=== PATIENT | female | born 1975 | race Caucasian/White ===

== ENCOUNTER 2017-10-24 07:23 | Emergency (ER) | payer BC ==
[2017-10-24] MEDS ORDERED: NS 0.9% 1000 ML* 1,000 ML IV ONE (07:43)
[2017-10-24] MEDS ORDERED: Aspirin Low Dose CHEW TAB* 81 MG PO ONE (07:45)
[2017-10-24 08:15] LABS: Hematocrit 43 % (35-47); Mean Corpuscular HGB Conc 33 g/dl (31-36); Mean Corpuscular Hemoglobin 27 pg (27-31); Mean Corpuscular Volume 83 fL (80-97); Mean Platelet Volume 8 um3 (7.4-10.4); Red Blood Count 5.18 10^6/ul (4.0-5.4); Red Cell Distribution Width 15 % (10.5-15); White Blood Count 10.4 10^3/ul (3.5-10.8)
[2017-10-24 08:25] LABS: ALT 12 U/L (7-52); AST 11 U/L (13-39); Albumin 4.2 g/dL (3.2-5.2); Alkaline Phosphatase 63 U/L (34-104); Anion Gap 5 mmol/L (2-11); BUN/Creatinine Ratio 24.4 (8-20); Blood Urea Nitrogen 20 mg/dL (6-24); CO2 Carbon Dioxide 25 mmol/L (22-32); Calcium 9.6 mg/dL (8.6-10.3); Chloride 107 mmol/L (101-111); Creatine Kinase 61 U/L (10-223); EGFR African American 97.9 (>60); EGFR Non-African American 76.1 (>60); Globulin 3.2 g/dL (2-4); Glucose 95 mg/dL (70-100); Magnesium 1.9 mg/dL (1.9-2.7); Potassium 3.9 mmol/L (3.5-5.0); Sodium 137 mmol/L (133-145); Total Protein 7.4 g/dL (6.4-8.9)
[2017-10-24 08:35] LABS: T4 7.69 mcg/mL (6.09-12.23)
[2017-10-24 08:38] LABS: TSH (Thyroid Stimulating Horm) 1.59 mcIU/mL (0.34-5.60)
--- NOTE | 2017-10-24 08:41 | RAD ---
HISTORY: Chest pain COMPARISONS: October 19, 2011 VIEWS: 1: frontal portable view of the chest at 8:20 AM FINDINGS: LINES AND TUBES: None. CARDIOMEDIASTINAL SILHOUETTE: The cardiomediastinal silhouette is normal for portable technique. PLEURA: The costophrenic angles are sharp. No pleural abnormalities are noted. LUNG PARENCHYMA: The lungs are clear. ABDOMEN: The upper abdomen is clear. There is no subphrenic gas. BONES AND SOFT TISSUES: No bone or soft tissue abnormalities are noted. IMPRESSION: NO ACTIVE CARDIOPULMONARY DISEASE.
[2017-10-24 12:36] LABS: Urine Bacteria Absent (Absent); Urine Bilirubin Negative (Negative); Urine Glucose Negative (Negative); Urine Nitrite Negative (Negative)
[2017-10-24 13:45] VITALS: BP 157/87
--- NOTE | 2017-10-26 04:12 | ED ---
Thalia Bliss Gabriel, scribed for Leslie Kwong MD on 10/24/17 at 0746 . HPI Chest Pain - HPI Summary HPI Summary: This patient is a 42 year old F presenting to [facility] accompanied by her with a chief complaint of CP since 0610 this morning that has resolved after a few hours. While it was present she rated the pain as 6/10, located on the left side under her breast and radiating into her left arm and armpit. She reports that the arm pain is still present. Patient reports PACHECO. Patient denies SOB. Pt states that she took Tylenol on the onset of the pain. She is currently menstruating with a . She has a family history of MIs at an early age in her aunt, but no history of PE. - History of Current Complaint Chief Complaint: EDChestPainROMI Time Seen by Provider: 10/24/17 07:43 Hx Obtained From: Patient Onset/Duration: Started Hours Ago - at 0610, Atraumatic, Still Present Time of Onset: 06:10 Timing: Constant Initial Severity: Mild Current Severity: Mild Pain Intensity: 3 Pain Scale Used: 0-10 Numeric Chest Pain Location: Left Lateral Chest Pain Radiates: Yes Chest Pain Radiates To:: Arm - left Character: Sharp/Stabbing Aggravating Factor(s): Nothing Alleviating Factor(s): Spontaneous Resolution Associated Signs and Symptoms: Positive: Negative - SOB, Headaches, Other: - left arm pain - Allergy/Home Medications Allergies/Adverse Reactions: Allergies Allergy/AdvReac Type Severity Reaction Status Date / Time Latex Allergy Hives Verified 10/24/17 07:31 BOUNCE FABRIC SOFTNER Allergy Rash Uncoded 07/15/15 07:37 CAMOMILE Allergy Hives Uncoded 07/15/15 07:37 Home Medications: Home Medications Ferrous Gluconate TAB* [Fergon TAB*] 325 mg PO DAILY 10/24/17 [History Confirmed 10/24/17] Multivitamins/Minerals TAB* [Theragran/minerals TAB*] 1 tab PO DAILY 10/24/17 [ History Confirmed 10/24/17] PMH/Surg Hx/FS Hx/Imm Hx Previously Healthy: No Endocrine/Hematology History: Reports: Hx Anemia - IRON DEFICIENT Cardiovascular History: Denies: Hx Deep Vein Thrombosis, Hx Embolism Musculoskeletal History: Reports: Hx Tendonitis Sensory History: Reports: Hx Contacts or Glasses - GLASSES Denies: Hx Hearing Aid Opthamlomology History: Reports: Hx Contacts or Glasses - GLASSES - Cancer History Hx Chemotherapy: No Hx Radiation Therapy: No - Surgical History Surgery Procedure, Year, and Place: CSECTION. TUBAL [facility] 2002. [place] in left leg Hx Anesthesia Reactions: No Infectious Disease History: No Infectious Disease History: Denies: Traveled Outside the [place] in Last 30 Days - Family History Known Family History: Positive: Cardiac Disease Negative: Blood Disorder - PE's negative - Social History Alcohol Use: None Substance Use Type: Reports: None Smoking Status (MU): Never Smoked Tobacco Review of Systems Constitutional: Negative Positive: Chest Pain Negative: Shortness Of Breath Gastrointestinal: Negative Positive: Other - pain into left arm and armpit Positive: Headache Psychological: Normal All Other Systems Reviewed And Are Negative: Yes Physical Exam - Summary Physical Exam Summary: Appearance: Well-appearing, mild pain distress, Well-nourished Skin: Warm, color reflects adequate perfusion Head: Normal Head/Face appearance Eyes: Conjunctiva clear, EOMI ENT: Normal appearance Neck: Supple, no JVD, no adenopathy Respiratory: Lungs clear, Normal breath sounds, no respiratory distress, chest nontender on palp Cardio: RRR, No murmur, pulses normal, brisk capillary refill Abdomen: soft, nontender Musculoskeletal: Strength Intact/ ROM intact, no calf tenderness or swelling Neuro: Alert, muscle tone normal,facial symmetry, speech normal, sensory/motor intact Triage Information Reviewed: Yes Vital Signs On Initial Exam: Initial Vitals Temp Pulse Resp BP Pulse Ox 99.0 F 89 16 161/96 98 10/24/17 07:31 10/24/17 07:31 10/24/17 07:31 10/24/17 07:31 10/24/17 07:31 Vital Signs Reviewed: Yes Diagnostics - Vital Signs Vital Signs Temp Pulse Resp BP Pulse Ox 10/24/17 07:31 99.0 F 89 16 161/96 98 - Laboratory Lab Results: Lab Results 10/24/17 10/24/17 10/24/17 Range/Units 07:56 07:56 07:56 WBC 10.4 (3.5-10.8) 10^3/ul RBC 5.18 (4.0-5.4) 10^6/ul Hgb 14.0 (12.0-16.0) g/dl Hct 43 (35-47) % MCV 83 (80-97) fL MCH 27 (27-31) pg MCHC 33 (31-36) g/dl RDW 15 (10.5-15) % Plt Count 368 (150-450) 10^3/ul MPV 8 (7.4-10.4) um3 Neut % (Auto) 65.0 (38-83) % Lymph % (Auto) 25.4 (25-47) % [place] % (Auto) 7.1 (1-9) % Eos % (Auto) 1.7 (0-6) % Baso % (Auto) 0.8 (0-2) % Absolute Neuts (auto) 6.7 (1.5-7.7) 10^3/ul Absolute Lymphs (auto) 2.6 (1.0-4.8) 10^3/ul Absolute Monos (auto) 0.7 (0-0.8) 10^3/ul Absolute Eos (auto) 0.2 (0-0.6) 10^3/ul Absolute Basos (auto) 0.1 (0-0.2) 10^3/ul Absolute Nucleated RBC 0 10^3/ul Nucleated RBC % 0 INR (Anticoag Therapy) (0.77-1.02) D-Dimer, Quantitative (Less Than 230) ng/mL Sodium 137 (133-145) mmol/L Potassium 3.9 (3.5-5.0) mmol/L Chloride 107 (101-111) mmol/L Carbon Dioxide 25 (22-32) mmol/L Anion Gap 5 (2-11) mmol/L BUN 20 (6-24) mg/dL Creatinine 0.82 (0.51-0.95) mg/dL Est GFR ( Amer) 97.9 (>60) Est GFR (Non-Af Amer) 76.1 (>60) BUN/Creatinine Ratio 24.4 H (8-20) Glucose 95 (70-100) mg/dL Lactic Acid (0.5-2.0) mmol/L Calcium 9.6 (8.6-10.3) mg/dL Magnesium 1.9 (1.9-2.7) mg/dL Total Bilirubin 0.40 (0.2-1.0) mg/dL AST 11 L (13-39) U/L ALT 12 (7-52) U/L Alkaline Phosphatase 63 (34-104) U/L Total Creatine Kinase 61 (10-223) U/L CK-MB (CK-2) 0.9 (0.6-6.3) ng/mL Troponin I 0.00 (<0.04) ng/mL B-Natriuretic Peptide 15 ( - 100) pg/mL Total Protein 7.4 (6.4-8.9) g/dL Albumin 4.2 (3.2-5.2) g/dL Globulin 3.2 (2-4) g/dL Albumin/Globulin Ratio 1.3 (1-3) TSH 1.59 (0.34-5.60) mcIU/mL Thyroxine (T4) 7.69 (6.09-12.23) mcg/mL Beta HCG, Quant < 0.60 mIU/mL Urine Color Urine Appearance Urine pH (5-9) Ur Specific [place] (1.010-1.030) Urine Protein (Negative) Urine Ketones (Negative) Urine Blood (Negative) Urine Nitrate (Negative) Urine Bilirubin (Negative) Urine Urobilinogen (Negative) Ur Leukocyte Esterase (Negative) Urine WBC (Auto) (Absent) Urine RBC (Auto) (Absent) Ur Squamous Epith Cells (Absent) Urine Bacteria (Absent) Urine Glucose (Negative) 10/24/17 10/24/17 10/24/17 Range/Units 07:56 07:56 10:55 WBC (3.5-10.8) 10^3/ul RBC (4.0-5.4) 10^6/ul Hgb (12.0-16.0) g/dl Hct (35-47) % MCV (80-97) fL MCH (27-31) pg MCHC (31-36) g/dl RDW (10.5-15) % Plt Count (150-450) 10^3/ul MPV (7.4-10.4) um3 Neut % (Auto) (38-83) % Lymph % (Auto) (25-47) % [place] % (Auto) (1-9) % Eos % (Auto) (0-6) % Baso % (Auto) (0-2) % Absolute Neuts (auto) (1.5-7.7) 10^3/ul Absolute Lymphs (auto) (1.0-4.8) 10^3/ul Absolute Monos (auto) (0-0.8) 10^3/ul Absolute Eos (auto) (0-0.6) 10^3/ul Absolute Basos (auto) (0-0.2) 10^3/ul Absolute Nucleated RBC 10^3/ul Nucleated RBC % INR (Anticoag Therapy) 0.93 (0.77-1.02) D-Dimer, Quantitative < 200 (Less Than 230) ng/mL Sodium (133-145) mmol/L Potassium (3.5-5.0) mmol/L Chloride (101-111) mmol/L Carbon Dioxide (22-32) mmol/L Anion Gap (2-11) mmol/L BUN (6-24) mg/dL Creatinine (0.51-0.95) mg/dL Est GFR ( Amer) (>60) Est GFR (Non-Af Amer) (>60) BUN/Creatinine Ratio (8-20) Glucose (70-100) mg/dL Lactic Acid 0.9 (0.5-2.0) mmol/L Calcium (8.6-10.3) mg/dL Magnesium (1.9-2.7) mg/dL Total Bilirubin (0.2-1.0) mg/dL AST (13-39) U/L ALT (7-52) U/L Alkaline Phosphatase (34-104) U/L Total Creatine Kinase (10-223) U/L CK-MB (CK-2) (0.6-6.3) ng/mL Troponin I 0.00 (<0.04) ng/mL B-Natriuretic Peptide ( - 100) pg/mL Total Protein (6.4-8.9) g/dL Albumin (3.2-5.2) g/dL Globulin (2-4) g/dL Albumin/Globulin Ratio (1-3) TSH (0.34-5.60) mcIU/mL Thyroxine (T4) (6.09-12.23) mcg/mL Beta HCG, Quant mIU/mL Urine Color Urine Appearance Urine pH (5-9) Ur Specific [place] (1.010-1.030) Urine Protein (Negative) Urine Ketones (Negative) Urine Blood (Negative) Urine Nitrate (Negative) Urine Bilirubin (Negative) Urine Urobilinogen (Negative) Ur Leukocyte Esterase (Negative) Urine WBC (Auto) (Absent) Urine RBC (Auto) (Absent) Ur Squamous Epith Cells (Absent) Urine Bacteria (Absent) Urine Glucose (Negative) 10/24/17 Range/Units 12:05 WBC (3.5-10.8) 10^3/ul RBC (4.0-5.4) 10^6/ul Hgb (12.0-16.0) g/dl Hct (35-47) % MCV (80-97) fL MCH (27-31) pg MCHC (31-36) g/dl RDW (10.5-15) % Plt Count (150-450) 10^3/ul MPV (7.4-10.4) um3 Neut % (Auto) (38-83) % Lymph % (Auto) (25-47) % [place] % (Auto) (1-9) % Eos % (Auto) (0-6) % Baso % (Auto) (0-2) % Absolute Neuts (auto) (1.5-7.7) 10^3/ul Absolute Lymphs (auto) (1.0-4.8) 10^3/ul Absolute Monos (auto) (0-0.8) 10^3/ul Absolute Eos (auto) (0-0.6) 10^3/ul Absolute Basos (auto) (0-0.2) 10^3/ul Absolute Nucleated RBC 10^3/ul Nucleated RBC % INR (Anticoag Therapy) (0.77-1.02) D-Dimer, Quantitative (Less Than 230) ng/mL Sodium (133-145) mmol/L Potassium (3.5-5.0) mmol/L Chloride (101-111) mmol/L Carbon Dioxide (22-32) mmol/L Anion Gap (2-11) mmol/L BUN (6-24) mg/dL Creatinine (0.51-0.95) mg/dL Est GFR ( Amer) (>60) Est GFR (Non-Af Amer) (>60) BUN/Creatinine Ratio (8-20) Glucose (70-100) mg/dL Lactic Acid (0.5-2.0) mmol/L Calcium (8.6-10.3) mg/dL Magnesium (1.9-2.7) mg/dL Total Bilirubin (0.2-1.0) mg/dL AST (13-39) U/L ALT (7-52) U/L Alkaline Phosphatase (34-104) U/L Total Creatine Kinase (10-223) U/L CK-MB (CK-2) (0.6-6.3) ng/mL Troponin I (<0.04) ng/mL B-Natriuretic Peptide ( - 100) pg/mL Total Protein (6.4-8.9) g/dL Albumin (3.2-5.2) g/dL Globulin (2-4) g/dL Albumin/Globulin Ratio (1-3) TSH (0.34-5.60) mcIU/mL Thyroxine (T4) (6.09-12.23) mcg/mL Beta HCG, Quant mIU/mL Urine Color Yellow Urine Appearance Cloudy Urine pH 6.0 (5-9) Ur Specific [place] 1.017 (1.010-1.030) Urine Protein Negative (Negative) Urine Ketones Negative (Negative) Urine Blood Negative (Negative) Urine Nitrate Negative (Negative) Urine Bilirubin Negative (Negative) Urine Urobilinogen Negative (Negative) Ur Leukocyte Esterase 3+ H (Negative) Urine WBC (Auto) 2+(11-20/hpf) H (Absent) Urine RBC (Auto) Trace(0-2/hpf) (Absent) Ur Squamous Epith Cells Present H (Absent) Urine Bacteria Absent (Absent) Urine Glucose Negative (Negative) Result Diagrams: 10/24/17 07:56 10/24/17 07:56 Lab Statement: Any lab studies that have been ordered have been reviewed, and results considered in the medical decision making process. - Radiology CXR Radiology Interpretation Completed By: Radiologist - NO ACTIVE CARDIOPULMONARY DISEASE. ED physician has reviewed this radiology report. - EKG 0741 Cardiac Rate: NL EKG Rhythm: Sinus Rhythm - 79 BPM EKG Interpretation: nml AV/IV conduction, nml QCt, nml axis EKG Comparison: Other - No prior to compare to Re-Evaluation - Re-Evaluation First Eval Re-Evaluation Time: 13:10 - pain is resolved. labs and CXR and EKG discussed with pt. agrees to DC Change: Improved Chest Pain Course/Dx - Course Assessment/Plan: An EKG reveals nml av/iv conduction, nml qct, nml axis. CXR reveals, per radiologist, NO ACTIVE CARDIOPULMONARY DISEASE. Test results with no significant abnormalities. In the ED course the patient was given ASA and IV fluids. Patient will be discharged and follow up from Dr. Oliveira. The patient is agreeable with this plan. - Chest Pain Differential Diagnosis/HQI/PQRI: Acute GA, ACS, Angina, Chest Wall, GI Disease, Lower Respiratory Infection, Pulmonary Embolism - Diagnoses Provider Diagnoses: Chest pain, Elevated blood pressure reading without diagnosis of hypertension Discharge - Discharge Plan Condition: Stable Disposition: HOME Patient Education Materials: Chest Pain (ED) Referrals: Kirstie Oliveira MD [Primary Care Provider] - 2 Days Additional Instructions: Your blood pressure was elevated today. You will need to have this checked again within one month. We did not find a serious cause of your chest pain today. Return to the ER if you have any new or worsening symptoms. The documentation as recorded by the Thalia bowden Gabriel accurately reflects the service I personally performed and the decisions made by , Leslie Kwong MD.
== END 2017-10-24 13:44 | disposition home or self-care (01) ==
LOC: ED 07:23
DX: R07.9 Chest pain, unspecified (principal); R03.0 Elevated blood-pressure reading, without diagnosis of hypertension; R51 Headache; M79.602 Pain in left arm
CPT/HCPCS: 36415; 71010; 80053; 81003; 81015; 82550; 82553; 83605; 83735; 83880; 84436; 84443; 84484; 84702; 85025; 85379; 85610; 87086; 93005; 96360; 96361; 99283; A9270-GY

== ENCOUNTER 2021-06-22 17:10 | Inpatient (IN) ==
[2021-06-22 22:01] LABS: ABS Basophils 0.1 10^3/ul (0-0.2); ABS Eosinophils 0.2 10^3/ul (0-0.6); ABS Lymphocytes 3.1 10^3/ul (1.0-4.8); ABS Monocytes 0.7 10^3/ul (0-0.8); ABS Neutrophils 9.3 10^3/ul (1.5-7.7); Eosinophil % 1.5 %; Hematocrit 39 % (35-47); Hemoglobin 12.9 g/dL (12.0-16.0); Lymphocyte % 23.4 %; Mean Corpuscular HGB Conc 33 g/dL (31-36); Mean Corpuscular Hemoglobin 27 pg (27-31); Mean Corpuscular Volume 83 fL (80-97); Nucleated Red Blood Cells % 0.1; Platelet Count 429 10^3/uL (150-450); Red Blood Count 4.74 10^6 /uL (3.70-4.87); Red Cell Distribution Width 16 % (10-15); White Blood Count 13.4 10^3/uL (3.5-10.8)
[2021-06-22 22:10] LABS: Activated Partial Thrombo Time 29.4 seconds (26.0-38.0); INR 0.96 (0.86-1.15)
[2021-06-22] MEDS ORDERED: Heparin DRIP 25,000 UNITS BAG 25,000 UNITS/500 ML BAG IV SCH (22:15)
[2021-06-22 22:22] LABS: ALT 15 U/L (7-52); AST 12 U/L (13-39); Albumin 4.5 g/dL (3.2-5.2); Albumin/Globulin Ratio 1.4 (1-3); Alkaline Phosphatase 51 U/L (35-149); Anion Gap 9 mmol/L (2-11); Blood Urea Nitrogen 15 mg/dL (6-24); CO2 Carbon Dioxide 25 mmol/L (22-32); Calcium 9.5 mg/dL (8.6-10.3); Chloride 104 mmol/L (101-111); EGFR African American 94.4 (>60); Globulin 3.3 g/dL (2-4); Glucose 83 mg/dL (70-100); Potassium 3.5 mmol/L (3.5-5.0); Sodium 138 mmol/L (135-145); Total Protein 7.8 g/dL (6.4-8.9)
[2021-06-22 22:25] LABS: HCG Pregnancy < 0.60 mIU/mL
[2021-06-23 05:56] LABS: Hematocrit 36 % (35-47); Mean Corpuscular HGB Conc 34 g/dL (31-36); Mean Corpuscular Hemoglobin 28 pg (27-31); Mean Corpuscular Volume 82 fL (80-97); Mean Platelet Volume 7.1 fL (7.4-10.4); Platelet Count 377 10^3/uL (150-450); Red Blood Count 4.32 10^6 /uL (3.70-4.87); Red Cell Distribution Width 16 % (10-15); White Blood Count 9.9 10^3/uL (3.5-10.8)
[2021-06-23 06:15] LABS: Calcium 8.9 mg/dL (8.6-10.3); EGFR African American 103.4 (>60); EGFR Non-African American 85.5 (>60); Potassium 3.5 mmol/L (3.5-5.0)
[2021-06-23] MEDS ORDERED: hydrALAZINE 20 mg/ml 1 ML Vial IV IV SLOW PU PRN (14:43)
[2021-06-23] MEDS ORDERED: Lactated Ringers 1000 ml BAG 1,000 ML IV SCH (16:30)
[2021-06-23 18:25] VITALS: BP 150/69
== END 2021-06-23 20:05 | disposition home or self-care (01) | DRG 58 ==
LOC: ED 17:10 → SUATTDRO 06-23 00:03 → MEDTELE 06-23 00:03
PROVIDERS: ADMIT Internal Medicine; ATTEND Internal Medicine

== ENCOUNTER 2022-02-09 11:17 | Observation (INO) ==
[~2022-02-09 11:17] MED LIST: Clindamycin 900 MG/D5W BAG IVPB ONE; HYDROmorphone PCA 1 MG/ML Titrat per Protocol PCA SCH
[2022-02-09] MEDS ORDERED: Ondansetron 4 mg VIAL 2 MG/ML 2 ml VIAL ONE (11:42)
[2022-02-09] MEDS ORDERED: oxyCODONE SR 10 mg TAB ONE (11:42)
[2022-02-09] MEDS ORDERED: Scopolamine 1 mg/72hr PATCH ONE (11:43)
[2022-02-09] MEDS ORDERED: Heparin 2 UNITS/ML IVPREMIX 3,000 UNIT/1,500 ML BAG IV ONE (12:22)
[2022-02-09] MEDS ORDERED: Iohexol 350 (CONTRAST) 200 ML MDV IV ONE (12:22)
[2022-02-09] MEDS ORDERED: Lidocaine 1% MPF 5 ML VIAL ONE ×2 (12:22→13:14)
[2022-02-09] MEDS ORDERED: Midazolam 5 mg/5 ml VIAL 1 mg/ml 5 ml VIAL (5 mg) ONE (12:25)
[2022-02-09] MEDS ORDERED: fentaNYL 250 mcg/5 ml 50 MCG/ML 5 ml VIAL (250 MCG) ONE (12:25)
[2022-02-09] MEDS ORDERED: nitroGLYCERIN DRIP 25,000 MCG/250 ML BTL ONE (12:36)
[2022-02-09 13:08] LABS: Anion Gap 7 mmol/L (2-11); Blood Urea Nitrogen 16 mg/dL (6-24); CO2 Carbon Dioxide 22 mmol/L (22-32); Calcium 9.9 mg/dL (8.6-10.3); Chloride 108 mmol/L (101-111); Glucose 75 mg/dL (70-100); Potassium 4.5 mmol/L (3.5-5.0); Sodium 137 mmol/L (135-145); eGFR CKD-EPI 95.1 (>60)
[2022-02-09 13:15] LABS: HCG Pregnancy < 0.60 mIU/mL
[2022-02-09] MEDS ORDERED: HYDROmorphone 0.5 MG/0.5 ML SYRINGE ONE ×3 (14:08→14:37)
[2022-02-09] MEDS ORDERED: Metoprolol Tartrate 5 mg VIAL 5 ml VIAL (1 mg/ml) ONE (14:41)
[2022-02-09] MEDS ORDERED: NS 0.9% 1000 ml BAG 1,000 ML IV SCH (18:00)
[2022-02-09] MEDS ORDERED: Ondansetron 4 mg VIAL 2 MG/ML 2 ml VIAL IV SCH (20:00)
[2022-02-09] MEDS: NS 0.9% 1000 ml BAG 1,000 ML IV SCH (22:59)
[2022-02-10] MEDS ORDERED: Ondansetron 4 mg VIAL 2 MG/ML 2 ml VIAL IV SCH (02:00)
[2022-02-10] MEDS: NS 0.9% 1000 ml BAG 1,000 ML IV SCH (07:06)
[2022-02-10] MEDS ORDERED: HYDROcodone/ACETAMIN 5/325 mg TAB PO PRN (07:49)
[2022-02-10] MEDS ORDERED: Ketorolac 10 mg TAB (NF) PO SCH (08:00)
[2022-02-10 08:23] VITALS: BP 155/88
== END 2022-02-10 11:45 | disposition home or self-care (01) ==
LOC: CHICATH 11:17 → SSU 11:17 → CHICATH 18:51
PROVIDERS: ADMIT Internal Medicine; ATTEND Internal Medicine
PROC: ANG.UFE (2022-02-09 12:10)